=== PATIENT | male | born 1950 | race Caucasian/White ===

== ENCOUNTER 2017-11-25 12:31 | Emergency (ER) | payer OTHER ==
--- NOTE | 2017-11-25 13:45 | XRAY Preliminary Report ---
Exam: XR CHEST 2 VIEW X-RAY IMPRESSION: 1. Nonspecific opacity over the right midlung at the level of the minor fissure. May represent scarri ng/posttreatment change, malignancy given history of small cell lung cancer, or infiltrate. 2. Apparent rounded opacity and prominence of the right hilum may represent a hilar mass or node. Cor relation of these findings with reported scheduled PET scan tomorrow or prior imaging would be very u seful. [facility] SITE ID: [id number]
--- NOTE | 2017-11-25 13:58 | XRAY Report ---
EXAM: CHEST RADIOGRAPHY EXAM DATE: 11/25/2017 01:12 PM. CLINICAL HISTORY: Cough/congestion. Additional history: Treatment for small cell lung cancer. COMPARISON: None. TECHNIQUE: 2 views. FINDINGS: Lungs/Pleura: The lungs are hyperexpanded with flattening of diaphragm and increased retrosternal chandu ar space suggestive of COPD. Infiltrate versus scarring versus tumor present along the course of the right minor fissure extending to the pleural surface. No additional foci of possible consolidation. Mediastinum: Heart size is normal. Patient is mildly rotated toward the right. Atherosclerotic calcif ication present in the thoracic aorta. Rounded density present in the right infrahilar region may rep resent a lymph node or nodule/mass. Other: Accentuated thoracic kyphosis with diffuse osseous demineralization. No acute displaced fractu re demonstrated. IMPRESSION: 1. Nonspecific opacity over the right midlung at the level of the minor fissure may represent scarrin g/posttreatment change, malignancy given history of small cell lung cancer, or infiltrate. 2. Apparent rounded opacity and prominence of the right hilum may represent a hilar mass or node. Cor relation of these findings with reported scheduled PET scan tomorrow or prior imaging would be very u seful. [facility] Referring Provider Line: [phone] SITE ID: [id number]
[2017-11-25] MEDS ORDERED: IPRATROPIUM/ALBUTEROL 3 ML NEB INH STA (14:01)
[2017-11-25] MEDS ORDERED: predniSONE 20 MG TABLET PO STA (14:01)
--- NOTE | 2017-11-25 14:03 | ED Physician Documentation ---
PD HPI DYSPNEA - Stated complaint Stated Complaint: SOA/COUGH - Chief complaint Chief Complaint: Resp - History obtained from History obtained from: Patient - History of Present Illness Timing - onset: Other (He was diagnosed with non-small cell lung cancer of the right upper lobe about 2 months ago with metastases to the neck, duodenum, and hip. He received his second infusion of Opdivo 5 days ago and 2 days ago had 2 units of blood for a hemoglobin of 8.6. He has had 3 days of a cough productive of clear sputum without fever but became short of breath last night. There is no associated chest pain. He is on Eliquis for A. fib but admits to me that he only takes it once a day instead of twice a day because he scared of it. His cancer treatment is at [facility] by Dr. Joe Yin, he is reachable at [phone].) Review of Systems Constitutional: reports: Chills (Since diagnosis, not new), Fatigue. denies: Fever Throat: denies: Dental pain / toothache, Sore throat Cardiac: denies: Chest pain / pressure, Palpitations, Pedal edema, Calf pain Respiratory: reports: Dyspnea, Cough GI: denies: Abdominal Pain PD PAST MEDICAL HISTORY - Past Medical History Cardiovascular: Hypertension, High cholesterol Respiratory: Sleep apnea, CPAP use Endocrine/Autoimmune: None GI: None : None Psych: Claustrophobia Musculoskeletal: Osteoarthritis, Other Derm: None Other Past Medical History: cancer mets - Present Medications Home Medications: Ambulatory Orders Medication Instructions Recorded Confirmed Allopurinol 300 mg PO DAILY 05/04/15 11/25/17 Atorvastatin Calcium [Lipitor] 40 mg PO QPM 05/04/15 11/25/17 amLODIPine [Norvasc] 10 mg PO DAILY 05/04/15 11/25/17 Albuterol Sulfate [Proair Hfa 2 puffs INH Q4H PRN 11/25/17 11/25/17 Inhaler] Apixaban [Eliquis] 2.5 mg PO DAILY 11/25/17 11/25/17 Doxycycline Hyclate 100 mg PO BID #14 tablet 11/25/17 Ferrous Sulfate 325 mg PO DAILY 11/25/17 11/25/17 Hydralazine HCl 100 mg PO BID 11/25/17 11/25/17 Potassium Chloride 10 meq PO DAILY 11/25/17 11/25/17 Torsemide 100 mg PO DAILY 11/25/17 11/25/17 metOLazone [Metolazone] 2.5 mg PO Q3D 11/25/17 11/25/17 predniSONE [Deltasone] 20 mg PO DAILY 5 Days tablet 11/25/17 - Allergies Allergies/Adverse Reactions: Allergies Allergy/AdvReac Type Severity Reaction Status Date / Time MILAGROS Inhibitors AdvReac Intermediate Unknown Verified 11/25/17 14:05 - Social History Does the pt smoke?: No Smoking Status: Never smoker Does the pt drink ETOH?: No Does the pt have substance abuse?: No - Immunizations Immunizations are current?: Yes PD ED PE NORMAL - Vitals Vital signs reviewed: Yes - General General: Alert and oriented X 3, No acute distress - HEENT HEENT: PERRL, EOMI - Neck Neck: Supple, no meningeal sign, No bony TTP - Cardiac Cardiac: RRR, No murmur - Respiratory Respiratory: Other (Tight and wheezy throughout, nonlabored.) - Abdomen Abdomen: Soft, Non tender - Rectal Rectal: Other (Brown guaiac negative stool) - Extremities Extremities: No edema, No calf tenderness / cord - Neuro Neuro: Alert and oriented X 3, Normal speech - Psych Psych: Normal mood, Normal affect Results - Vitals Vitals: Vital Signs - 24 hr 11/25/17 11/25/17 11/25/17 12:43 13:11 13:17 Temperature 37.2 C 36.9 C Heart Rate 88 86 Respiratory 16 16 Rate Blood Pressure 140/69 H 153/93 H O2 Saturation 96 92 11/25/17 11/25/17 11/25/17 14:18 14:45 16:10 Temperature 37.1 C Heart Rate 94 94 101 H Respiratory 20 22 20 Rate Blood Pressure 147/80 H O2 Saturation 94 Oxygen O2 Source Nasal cannula - EKG (time done) 1242 Rate: Rate (enter#) (79) Rhythm: Atrial fibrillation [place]: Normal Ischemia: Non specific changes. No: ST elevation c/w ischemia Computer interpretation: Agree with computer - Labs Labs: Laboratory Tests 11/25/17 11/25/17 11/25/17 13:40 13:40 13:40 WBC 8.1 RBC 2.95 L Hgb 9.2 L Hct 27.6 L MCV 93.8 MCH 31.3 H MCHC 33.4 RDW 20.0 H Plt Count 315 MPV 7.7 Neut # 6.5 Lymph # 0.7 L [place] # 0.8 Eos # 0.0 Baso # 0.1 Absolute Nucleated RBC 0.01 Nucleated RBC % 0.1 D-Dimer Sodium 132 L Potassium 2.9 L Chloride 93 L Carbon Dioxide 27 Anion Gap 12.0 BUN 32 H Creatinine 1.5 H Estimated GFR (MDRD) 47 L Glucose 99 Lactic Acid 1.0 Calcium 8.6 Total Bilirubin 0.9 AST 14 ALT 13 Alkaline Phosphatase 90 Troponin I B-Natriuretic Peptide Total Protein 7.0 Albumin 3.6 Globulin 3.4 Albumin/Globulin Ratio 1.1 Lipase 16 L 11/25/17 11/25/17 11/25/17 13:40 13:40 13:40 WBC RBC Hgb Hct MCV MCH MCHC RDW Plt Count MPV Neut # Lymph # [place] # Eos # Baso # Absolute Nucleated RBC Nucleated RBC % D-Dimer 378.0 H Sodium Potassium Chloride Carbon Dioxide Anion Gap BUN Creatinine Estimated GFR (MDRD) Glucose Lactic Acid Calcium Total Bilirubin AST ALT Alkaline Phosphatase Troponin I 0.04 B-Natriuretic Peptide 669 H Total Protein Albumin Globulin Albumin/Globulin Ratio Lipase - Rads (name of study) 2 view chest x-ray Radiology: EMP read contemporaneously (Right mid lung opacity, right hilar mass could be node or mass.) CTA chest Radiology: EMP read contemporaneously (No PE. Other findings as documented ( right axillary lesion clinically is a sebaceous cyst.)) PD MEDICAL DECISION MAKING - ED course ED course: 67-year-old gentleman with known non-small cell lung cancer, COPD presents with shortness of breath last night the clinically is most consistent with COPD. He is not taking full dose blood thinners, so pulmonary embolism is also on the differential and his d-dimer was positive so this was followed with a CT angiogram of the chest which was negative for same. He was treated with nebulizers and steroids with improvement symptomatically and in his examination pulmonary [place]. I did speak with his oncologist, Dr. Yin at [facility] who did want us to try to decrease the steroids as low as possible because that will interfere with the mechanism of action of his immunotherapy for his lung cancer. Departure - Departure Disposition: 01 Home, Self Care Clinical Impression: COPD exacerbation Dyspnea Qualifiers: Dyspnea type: dyspnea on exertion Qualified Code(s): R06.09 - Other forms of dyspnea Condition: Good Record reviewed to determine appropriate education?: Yes Instructions: COPD Dc Prescriptions: Doxycycline Hyclate 100 mg PO BID #14 tablet predniSONE [Deltasone] 20 mg PO DAILY 5 Days tablet Comments: Call your doctor to arrange a follow-up appointment, make the next available appointment. In the interim, return anytime if worse or if new symptoms develop. Your blood pressure was elevated today on check into the emergency department. This does not mean that you have hypertension, it is a common phenomenon to come to the emergency department and have elevated blood pressure. I recommend that you see your primary care physician within the week to have it rechecked when you are feeling better.
[2017-11-25 14:12] LABS: BASOPHILS # (AUTO) 0.1 10^3/uL (0.0-0.1); BASOPHILS % (AUTO) 0.8 %; EOSINOPHILS % (AUTO) 0.3 %; HGB - HEMOGLOBIN 9.2 g/dL (14.0-18.0); LYMPHOCYTES # (AUTO) 0.7 10^3/uL (1.5-3.5); LYMPHOCYTES % (AUTO) 8.8 %; MEAN CORPUSCULAR HEMOGLOBIN 31.3 pg (27.0-31.0); MEAN CORPUSCULAR HGB CONC 33.4 g/dL (32.0-36.0); MEAN CORPUSCULAR VOLUME 93.8 fL (80.0-94.0); MEAN PLATELET VOLUME 7.7 fL (7.4-11.4); MONOCYTES # (AUTO) 0.8 10^3/uL (0.0-1.0); MONOCYTES % (AUTO) 9.8 %; NEUTROPHILS # (AUTO) 6.5 10^3/uL (1.5-6.6); NEUTROPHILS % (AUTO) 80.3 %; PLT - PLATELET COUNT 315 10^3/uL (130-450); RED BLOOD COUNT 2.95 10^6/uL (4.70-6.10); WHITE BLOOD COUNT 8.1 x10^3/uL (4.8-10.8)
[2017-11-25 14:21] LABS: ALBUMIN 3.6 g/dL (3.2-5.5); ALBUMIN/GLOBULIN RATIO 1.1 (1.0-2.2); BILIRUBIN,TOTAL 0.9 mg/dL (0.2-1.0); CALCIUM 8.6 mg/dL (8.5-10.3); CREATININE 1.5 mg/dL (0.6-1.2)
[2017-11-25] MEDS ORDERED: ALBUTEROL NEB 2.5 MG/3 ML INH STA (14:31)
[2017-11-25] MEDS ORDERED: IOPAMIDOL-300 100 ML VIAL ONE (14:39)
[2017-11-25] MEDS ORDERED: IOPAMIDOL-300 100 ML VIAL IVP ONE (15:26)
--- NOTE | 2017-11-25 15:58 | CT Preliminary Report ---
Exam: CT CHEST ANGIO (PE) IMPRESSION: 1. No evidence of pulmonary emboli through the segmental pulmonary arteries. 2. Right upper lobe spiculated mass in keeping with known non-small cell lung cancer, likely crossing the minor fissure into the right middle lobe as well. Lesion extends from the pleural surface to the hilum with significant attenuation of right upper lobe bronchi and abuts multiple vascular structure s. 2. Probable mediastinal lymph node metastases as described above. No abnormally enlarged left hilar l ymph nodes or left lung lesion to suggest left-sided intrapulmonary metastases or second primary. 3. Nodular thickening of the right adrenal gland suspicious for possible metastasis, incompletely helen racterized on this exam. The left adrenal gland is also thickened, though somewhat hypodense. These f indings will be better characterized on reported planned pet/CT. 4. Incompletely characterized exophytic right renal lesion. This may be better characterized on pendi ng PET/CT. Otherwise consider renal ultrasound for further evaluation to exclude solid mass versus co mplex cystic lesion. 5. Additional findings as above including skin-based lesion partially visualized near the right upper arm/lateral chest wall. [facility] SITE ID: [id number]
--- NOTE | 2017-11-25 16:12 | CT Report ---
EXAM: CT ANGIOGRAM CHEST EXAM DATE: 11/25/2017 03:21 PM. CLINICAL HISTORY: Dyspnea, high D-dimer, known non-small cell lung cancer. COMPARISON: Chest radiograph 11/25/2017. TECHNIQUE: Routine helical imaging was performed through the chest in the pulmonary arterial phase. I V Contrast: 80 mL Isovue 300. Reconstructions: Coronal 3-D MIP reconstructions.Sagittal and coronal. In accordance with CT protocol optimization, one or more of the following dose reduction techniques w ere utilized for this exam: automated exposure control, adjustment of mA and/or KV based on patient s ize, or use of iterative reconstructive technique. FINDINGS: Pulmonary Arteries: Diagnostic quality: Adequate through the segmental arteries. No evidence for acute or chronic pulmona ry emboli. RV/LV is within normal limits. There is no interventricular septal bowing. There is no reflux of cont rast material in the IVC. Lungs/Pleura: -There is a spiculated solid mass predominating in the right upper lobe extending to the jean and ple ural surface, though likely crossing the minor fissure into the right middle lobe as well. This is di fficult to measure accurately without including adjacent possible mediastinal/hilar lymph nodes and a telectatic lung, though approximately 57 x 74 x 29 mm ( and ). -Atelectasis versus a satellite nodule present in the right upper lobe anteriorly measuring 15 x 25 m m (). The mass attenuates and likely partially occludes the right upper lobe bronchi. Right middl e lobe bronchi attenuated centrally at the hilum, possibly due to gladis tissue versus invasive soft t issue from the mass. -Nonspecific solid pulmonary nodule in the right lower lobe associated with the major fissure measure s 5 mm (). Nonspecific right middle lobe nodule peripherally measures 6 mm, solid (). The lef t lung is clear. -No pleural effusion. No pneumothorax. Mediastinum: Borderline cardiomegaly with greatest enlargement of the left atrium. No significant per icardial effusion. Coronary artery calcifications and aortic valve calcifications present. -There are mildly prominent though non-pathologically enlarged left hilar lymph nodes. Right hilar ly mph node measures up to 12 mm in short axis (). There are multiple prominent mediastinal lymph no tiana. For example, right lower paratracheal/precarinal lymph node measures 11 mm (4/70). Lymph node in the superior mediastinum measures 11 mm in short axis (/65). Thoracic Aorta: There is mild fusiform ectasia of the ascending thoracic aorta measuring up to 39 mm. No shayan aneurysm. No dissection. Marked calcific atherosclerosis is present at the arch and origin of the branch vessels. Normal variant bovine arch branch pattern present. Upper Abdomen: Right kidney appears mildly atrophic compared to the left. There is severe calcific at herosclerosis of the visualized upper abdominal aorta with prominent plaque present at the renal miller ry. Both adrenal glands appear thickened, though the left adrenal gland appears mildly hypoattenuatin g, suggestive of possible hyperplasia or adenoma. The right adrenal gland is more hyperattenuating wi th a possible nodule present in the body, measuring 13 x 19 mm versus more severe thickening (4/150). This is incompletely characterized on this exam but there is reportedly a pending PET/CT which will better assess this lesion. There is an exophytic 27 mm lesion from the left interpolar kidney mediall y measuring 39 Hounsfield units, indeterminate for a solid mass versus a complex cyst (4/167). Other: Densely opacified right subclavian vein, this would not warrant imaging follow-up given its sm all size. No abnormally enlarged supraclavicular or axillary lymph nodes. -Partially visualized hypodense ovoid well-circumscribed lesion associated with the skin surface at t he right lateral chest wall/upper arm, likely a benign lesion, though correlation with physical exam recommended (58). Mild gynecomastia, slightly greater on the left than the right. -No acute osseous abnormality or suspicious focal osseous lesion. Chronic-appearing superior endplate compression deformity present at T10 with mild anterior height loss. IMPRESSION: 1. No evidence of pulmonary emboli through the segmental pulmonary arteries. 2. Right upper lobe spiculated mass in keeping with known non-small cell lung cancer, likely crossing the minor fissure into the right middle lobe as well. Lesion extends from the pleural surface to the hilum with significant attenuation of right upper lobe bronchi and abuts multiple vascular structure s. 3. Probable mediastinal lymph node metastases as described above. No abnormally enlarged left hilar l ymph nodes or left lung lesion to suggest left-sided intrapulmonary metastases or second primary. 4. Nodular thickening of the right adrenal gland suspicious for a possible metastasis, incompletely c haracterized on this exam. The left adrenal gland is also thickened, though somewhat hypodense. These findings will be better characterized on reported planned pet/CT. 5 Incompletely characterized exophytic right renal lesion. This may be better characterized on pendin g PET/CT. Otherwise consider renal ultrasound for further evaluation to exclude a solid mass versus a complex cystic lesion. 6. Additional findings as above, including skin-based lesion partially visualized near the right uppe r arm/lateral chest wall. [facility] Referring Provider Line: [phone] SITE ID: [id number]
[2017-11-25] MEDS ORDERED: DOXYCYCLINE 100 MG TABLET PO STA (16:15)
[2017-11-25 16:22] VITALS: BP 147/80
[2017-11-25] MEDS ORDERED: POTASSIUM CHLORIDE 20 MEQ TABLET PO STA (16:27)
== END 2017-11-25 16:31 | disposition home or self-care (01) ==
LOC: ED 12:31
DX: J44.1 Chronic obstructive pulmonary disease with (acute) exacerbation (principal); I10 Essential (primary) hypertension; E78.00 Pure hypercholesterolemia, unspecified; G47.30 Sleep apnea, unspecified; C34.11 Malignant neoplasm of upper lobe, right bronchus or lung; C78.4 Secondary malignant neoplasm of small intestine; C79.89 Secondary malignant neoplasm of other specified sites; I48.91 Unspecified atrial fibrillation; Z79.01 Long term (current) use of anticoagulants
CPT/HCPCS: 36415; 71046; 71275; 80053; 83605; 83690; 83880; 84484; 85025; 85379; 87040; 93005; 94640; 99283; 99284; A9270; J7512; Q9967

== ENCOUNTER 2017-11-27 12:05 | Outpatient (CLI) | payer OTHER, MEDICARE ==
[2017-11-27 12:31] LABS: BASOPHILS % (AUTO) 0.3 %; HGB - HEMOGLOBIN 10.4 g/dL (14.0-18.0); LYMPHOCYTES # (AUTO) 0.3 10^3/uL (1.5-3.5); LYMPHOCYTES % (AUTO) 3.7 %; MEAN CORPUSCULAR HEMOGLOBIN 31.2 pg (27.0-31.0); MEAN CORPUSCULAR VOLUME 94.5 fL (80.0-94.0); MEAN PLATELET VOLUME 7.5 fL (7.4-11.4); MONOCYTES # (AUTO) 0.3 10^3/uL (0.0-1.0); MONOCYTES % (AUTO) 3.8 %; NEUTROPHILS # (AUTO) 8.2 10^3/uL (1.5-6.6); NEUTROPHILS % (AUTO) 92.2 %; PLT - PLATELET COUNT 344 10^3/uL (130-450); RED BLOOD COUNT 3.33 10^6/uL (4.70-6.10); RED CELL DISTRIBUTION WIDTH 19.1 % (12.0-15.0); WHITE BLOOD COUNT 8.9 x10^3/uL (4.8-10.8)
== END 2017-11-27 12:06 | disposition home or self-care (01) ==
LOC: LAB 12:05
PROVIDERS: ATTEND Internal Medicine Hematology & Oncology
DX: C34.91 Malignant neoplasm of unspecified part of right bronchus or lung (principal)
CPT/HCPCS: 36415; 85025

== ENCOUNTER 2017-12-02 21:30 | Outpatient (CLI) | payer OTHER, MEDICARE | END 2017-12-02 21:31 | disposition critical access hospital (66) | LOC: EMS 21:30 | PROVIDERS: ATTEND Surgery | DX: M79.89 Other specified soft tissue disorders (principal); R20.0 Anesthesia of skin | CPT/HCPCS: A0425; A0429 ==

== ENCOUNTER 2017-12-02 21:56 | Emergency (ER) | payer OTHER, MEDICARE ==
[2017-12-02 22:54] LABS: ALBUMIN/GLOBULIN RATIO 1.3 (1.0-2.2); BILIRUBIN,TOTAL 0.3 mg/dL (0.2-1.0); CALCIUM 8.1 mg/dL (8.5-10.3); CREATININE 1.5 mg/dL (0.6-1.2); TOTAL PROTEIN 5.4 g/dL (6.7-8.2)
[2017-12-02] MEDS ORDERED: IOPAMIDOL-300 100 ML VIAL ONE (23:10)
[2017-12-02 23:19] LABS: BASOPHILS # (AUTO) 0.1 10^3/uL (0.0-0.1); BASOPHILS % (AUTO) 0.8 %; LYMPHOCYTES # (AUTO) 0.7 10^3/uL (1.5-3.5); LYMPHOCYTES % (AUTO) 5.6 %; MEAN CORPUSCULAR HEMOGLOBIN 30.8 pg (27.0-31.0); MEAN CORPUSCULAR HGB CONC 31.6 g/dL (32.0-36.0); MEAN CORPUSCULAR VOLUME 97.3 fL (80.0-94.0); MEAN PLATELET VOLUME 7.3 fL (7.4-11.4); MONOCYTES # (AUTO) 0.7 10^3/uL (0.0-1.0); MONOCYTES % (AUTO) 5.5 %; NEUTROPHILS # (AUTO) 11.1 10^3/uL (1.5-6.6); NEUTROPHILS % (AUTO) 88.1 %; PLT - PLATELET COUNT 288 10^3/uL (130-450); RED BLOOD COUNT 1.42 10^6/uL (4.70-6.10); RED CELL DISTRIBUTION WIDTH 20.5 % (12.0-15.0); WHITE BLOOD COUNT 12.6 x10^3/uL (4.8-10.8)
[2017-12-02 23:20] LABS: HGB - HEMOGLOBIN 4.4 g/dL (14.0-18.0)
[2017-12-02 23:23] LABS: INR 1.2 (0.8-1.2); PT - PROTHROMBIN TIME 13.1 secs (9.9-12.6)
[2017-12-02] MEDS ORDERED: IOPAMIDOL-300 100 ML VIAL IVP ONE (23:33)
[2017-12-02 23:56] LABS: PLATELET ESTIMATE, MANUAL NORMAL (130-450,000) (NORMAL)
--- NOTE | 2017-12-03 00:02 | CT Preliminary Report ---
Exam: CT LOWER EXTREMITY ANGIO BI W/ Preliminary vascular radiology report: 1. Severe atherosclerotic disease of the aorta, pelvic vessels, and bilateral leg vessels. 2. Small right kidney which is relatively hypoenhancing, likely due to chronic high-grade renal arter y stenosis. 3. 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 There is reconstitution of the distal superficial femoral artery and popliteal artery which are both severely diseased. The calf arteries are highly diseased with multilevel high-grade stenoses. Difficu lt to assess calf vessel patency due to calcifications. 4. Essentially occluded right common femoral artery with reconstitution of the superficial femoral ar alicja proximally this may be chronic as well.. Superficial femoral artery, popliteal artery, and calf arteries are highly diseased throughout their lengths. Difficult to assess calf vessel patency due to calcifications. Please followup with the final report to be performed by a vascular specialist in the morning. SITE ID: [id number]
--- NOTE | 2017-12-03 02:16 | ED Physician Documentation ---
History of Present Illness - Stated complaint Stated Complaint: FOOT COLD/NUMB - Chief complaint Chief Complaint: Ext Problem - History obtained from History obtained from: Patient, EMS - History of Present Illness Timing: Today - Additonal information Additional information: Patient is a 67 year old male with a history of metastatic CA with mets all over his body who is presenting to the emergency department for dizziness, and foot pain. patient states that he took a long shower and was feeling light headed. Patient also reports that he developed pain in his left foot that he has never had before and it felt cold even though he took a hot shower. Review of Systems Constitutional: denies: Fever, Chills Eyes: reports: Reviewed and negative Ears: reports: Reviewed and negative Nose: reports: Reviewed and negative Throat: denies: Sore throat Cardiac: reports: Pedal edema. denies: Chest pain / pressure, Palpitations GI: reports: Abdominal Pain. denies: Nausea, Vomiting : reports: Reviewed and negative Musculoskeletal: reports: Extremity pain, Joint pain, Extremity swelling Neurologic: reports: Generalized weakness. denies: Focal weakness, Numbness Immunocompromised: reports: Immunocompromised PD PAST MEDICAL HISTORY - Past Medical History Past Medical History: Yes Cardiovascular: Hypertension, High cholesterol Respiratory: Sleep apnea, CPAP use Endocrine/Autoimmune: None GI: None : None Psych: Claustrophobia Musculoskeletal: Osteoarthritis, Other Derm: None Other Past Medical History: stage IV lung CA w/mets - Past Surgical History Past Surgical History: Yes - Present Medications Home Medications: Ambulatory Orders Medication Instructions Recorded Confirmed Allopurinol 300 mg PO DAILY 05/04/15 11/25/17 Atorvastatin Calcium [Lipitor] 40 mg PO QPM 05/04/15 11/25/17 amLODIPine [Norvasc] 10 mg PO DAILY 05/04/15 11/25/17 Albuterol Sulfate [Proair Hfa 2 puffs INH Q4H PRN 11/25/17 11/25/17 Inhaler] Apixaban [Eliquis] 2.5 mg PO DAILY 11/25/17 11/25/17 Doxycycline Hyclate 100 mg PO BID #14 tablet 11/25/17 Ferrous Sulfate 325 mg PO DAILY 11/25/17 11/25/17 Hydralazine HCl 100 mg PO BID 11/25/17 11/25/17 Potassium Chloride 10 meq PO DAILY 11/25/17 11/25/17 Torsemide 100 mg PO DAILY 11/25/17 11/25/17 metOLazone [Metolazone] 2.5 mg PO Q3D 11/25/17 11/25/17 predniSONE [Deltasone] 20 mg PO DAILY 5 Days tablet 11/25/17 - Allergies Allergies/Adverse Reactions: Allergies Allergy/AdvReac Type Severity Reaction Status Date / Time MILAGROS Inhibitors AdvReac Intermediate Unknown Verified 12/02/17 22:11 - Social History Does the pt smoke?: No Smoking Status: Never smoker Does the pt drink ETOH?: No Does the pt have substance abuse?: No - Immunizations Immunizations are current?: Yes - POLST Patient has POLST: No PD ED PE NORMAL - Vitals Vital signs reviewed: Yes - HEENT HEENT: Atraumatic - Neck Neck: Supple, no meningeal sign - Cardiac Cardiac: RRR, No murmur - Respiratory Respiratory: No respiratory distress - Abdomen Abdomen: Soft - Neuro Neuro: Alert and oriented X 3, Normal speech Eye Opening: Spontaneous Motor: Obeys Commands Verbal: Oriented GCS Score: 15 PD ED PE EXPANDED - General General: Alert - Eyes Eyes: Other (pale conjunctiva) - Extremities Extremities: Pedal edema bilateral, Decreased/absent pulse, Motor intact, Sensory intact. No: Pedal Pulses Present Results - Vitals Vitals: Vital Signs - 24 hr 12/02/17 12/02/17 12/03/17 22:00 23:37 00:52 Temperature 36.3 C L 36.7 C Heart Rate 94 93 88 Respiratory 17 20 18 Rate Blood Pressure 126/53 L 158/76 H 145/68 H O2 Saturation 100 100 12/03/17 12/03/17 12/03/17 01:08 01:40 02:20 Temperature 36.6 C 36.8 C 36.8 C Heart Rate 88 85 95 Respiratory 18 17 17 Rate Blood Pressure 146/74 H 167/71 H 157/74 H O2 Saturation 12/03/17 12/03/17 12/03/17 02:46 03:29 04:23 Temperature 36.9 C 36.9 C 36.8 C Heart Rate 96 86 78 Respiratory 17 18 16 Rate Blood Pressure 159/68 H 161/78 H 154/87 H O2 Saturation 98 12/03/17 12/03/17 12/03/17 04:42 05:01 06:05 Temperature 36.7 C 36.7 C Heart Rate 83 78 80 Respiratory 16 17 16 Rate Blood Pressure 158/73 H 161/76 H 167/79 H O2 Saturation 96 Oxygen O2 Source Room air - Labs Labs: Laboratory Tests 12/02/17 12/02/17 12/02/17 22:35 23:09 23:10 WBC 12.6 H RBC 1.42 L Hgb 4.4 L* Hct 13.8 L* MCV 97.3 H MCH 30.8 MCHC 31.6 L RDW 20.5 H Plt Count 288 MPV 7.3 L Neut # 11.1 H Lymph # 0.7 L [place] # 0.7 Eos # 0.0 Baso # 0.1 Absolute Nucleated RBC 0.16 Nucleated RBC % 1.3 Manual Slide Review Indicated Platelet Estimate NORMAL (130-450,000) RBC Morph Micro Appear 1+ OVALOCYTES PT INR APTT Sodium 136 Potassium 3.4 L Chloride 98 L Carbon Dioxide 24 Anion Gap 14.0 H BUN 63 H Creatinine 1.5 H Estimated GFR (MDRD) 47 L Glucose 149 H Calcium 8.1 L Total Bilirubin 0.3 AST 16 ALT 10 Alkaline Phosphatase 58 Total Protein 5.4 L Albumin 3.0 L Globulin 2.4 Albumin/Globulin Ratio 1.3 Lipase 21 L Blood Type O POSITIVE Blood Type Recheck Antibody Screen NEGATIVE Crossmatch IS Only See Detail 12/02/17 12/03/17 23:10 00:17 WBC RBC Hgb Hct MCV MCH MCHC RDW Plt Count MPV Neut # Lymph # [place] # Eos # Baso # Absolute Nucleated RBC Nucleated RBC % Manual Slide Review Platelet Estimate RBC Morph Micro Appear PT 13.1 H INR 1.2 APTT 13.8 L Sodium Potassium Chloride Carbon Dioxide Anion Gap BUN Creatinine Estimated GFR (MDRD) Glucose Calcium Total Bilirubin AST ALT Alkaline Phosphatase Total Protein Albumin Globulin Albumin/Globulin Ratio Lipase Blood Type Blood Type Recheck O POSITIVE Antibody Screen Crossmatch IS Only - Rads (name of study) ct angio bilateral lower extremities Radiology: See rad report (occulsions of bilateral femoral arteries likely chronic. poor vascularity and possibly occuled vessel) PD MEDICAL DECISION MAKING - ED course Complexity details: reviewed old records, reviewed results, re-evaluated patient , considered differential, d/w patient, d/w family, d/w product/industry consultant ED course: Patient was seen and examined at bedside. IV access was gained and labs were drawn. patient's peripheral pulses could not be appreciated even with dopplers or ultrasound. CT angio of bilateral extremities was ordered. Patient did have good cap refill and upon original presentation in the emergency department patient was pain free. When patient's labs came back he was found to be anemic with a hemoglobin of 4. it was repeated and consistent. patient was questioned about previous episodes of anemia and he stated he was recently transfused and they thought it was a bleeding duodenal mass or maybe secondary to his chemotherapy. prbcs were ordered. patient's oncologist, Dr. Garsia was contacted at [facility]. He stated transfuse and your can transfer. Hospitalist was contacted and stated that he would accept the patient but they currently had no beds at the moment. Patient was transfused 4 units in the emergency department. Patient was awaiting bed when I left Departure - Departure Clinical Impression: Symptomatic anemia
[2017-12-03] MEDS ORDERED: oxyCODONE 5 MG TABLET PO STA (03:14)
--- NOTE | 2017-12-03 09:48 | ED Physician Documentation ---
History of Present Illness - Stated complaint Stated Complaint: FOOT COLD/NUMB - Chief complaint Chief Complaint: Ext Problem PD PAST MEDICAL HISTORY - Past Medical History Past Medical History: Yes Cardiovascular: Hypertension, High cholesterol Respiratory: Sleep apnea, CPAP use Endocrine/Autoimmune: None GI: None : None Psych: Claustrophobia Musculoskeletal: Osteoarthritis, Other Derm: None Other Past Medical History: stage IV lung CA w/mets - Past Surgical History Past Surgical History: Yes - Present Medications Home Medications: Ambulatory Orders Medication Instructions Recorded Confirmed Allopurinol 300 mg PO DAILY 05/04/15 11/25/17 Atorvastatin Calcium [Lipitor] 40 mg PO QPM 05/04/15 11/25/17 amLODIPine [Norvasc] 10 mg PO DAILY 05/04/15 11/25/17 Albuterol Sulfate [Proair Hfa 2 puffs INH Q4H PRN 11/25/17 11/25/17 Inhaler] Apixaban [Eliquis] 2.5 mg PO DAILY 11/25/17 11/25/17 Doxycycline Hyclate 100 mg PO BID #14 tablet 11/25/17 Ferrous Sulfate 325 mg PO DAILY 11/25/17 11/25/17 Hydralazine HCl 100 mg PO BID 11/25/17 11/25/17 Potassium Chloride 10 meq PO DAILY 11/25/17 11/25/17 Torsemide 100 mg PO DAILY 11/25/17 11/25/17 metOLazone [Metolazone] 2.5 mg PO Q3D 11/25/17 11/25/17 predniSONE [Deltasone] 20 mg PO DAILY 5 Days tablet 11/25/17 - Allergies Allergies/Adverse Reactions: Allergies Allergy/AdvReac Type Severity Reaction Status Date / Time MILAGROS Inhibitors AdvReac Intermediate Unknown Verified 12/02/17 22:11 - Social History Does the pt smoke?: No Smoking Status: Never smoker Does the pt drink ETOH?: No Does the pt have substance abuse?: No - Immunizations Immunizations are current?: Yes - POLST Patient has POLST: No Results - Vitals Vitals: Oxygen O2 Source Room air - Labs Labs: Laboratory Tests 12/02/17 12/02/17 12/02/17 22:35 23:09 23:10 WBC 12.6 H RBC 1.42 L Hgb 4.4 L* Hct 13.8 L* MCV 97.3 H MCH 30.8 MCHC 31.6 L RDW 20.5 H Plt Count 288 MPV 7.3 L Neut # 11.1 H Lymph # 0.7 L [place] # 0.7 Eos # 0.0 Baso # 0.1 Absolute Nucleated RBC 0.16 Nucleated RBC % 1.3 Manual Slide Review Indicated Platelet Estimate NORMAL (130-450,000) RBC Morph Micro Appear 1+ OVALOCYTES PT INR APTT Sodium 136 Potassium 3.4 L Chloride 98 L Carbon Dioxide 24 Anion Gap 14.0 H BUN 63 H Creatinine 1.5 H Estimated GFR (MDRD) 47 L Glucose 149 H Calcium 8.1 L Total Bilirubin 0.3 AST 16 ALT 10 Alkaline Phosphatase 58 Total Protein 5.4 L Albumin 3.0 L Globulin 2.4 Albumin/Globulin Ratio 1.3 Lipase 21 L Blood Type O POSITIVE Blood Type Recheck Antibody Screen NEGATIVE Crossmatch IS Only See Detail 12/02/17 12/03/17 12/03/17 23:10 00:17 11:10 WBC RBC Hgb 8.0 L Hct 23.8 L MCV MCH MCHC RDW Plt Count MPV Neut # Lymph # [place] # Eos # Baso # Absolute Nucleated RBC Nucleated RBC % Manual Slide Review Platelet Estimate RBC Morph Micro Appear PT 13.1 H INR 1.2 APTT 13.8 L Sodium Potassium Chloride Carbon Dioxide Anion Gap BUN Creatinine Estimated GFR (MDRD) Glucose Calcium Total Bilirubin AST ALT Alkaline Phosphatase Total Protein Albumin Globulin Albumin/Globulin Ratio Lipase Blood Type Blood Type Recheck O POSITIVE Antibody Screen Crossmatch IS Only PD MEDICAL DECISION MAKING - ED course Complexity details: reviewed results, re-evaluated patient, d/w device sales consultant ED course: At change of shift the patient's care was signed out to me, pending transfer to [facility]. The patient is undergoing blood transfusion for profound anemia, with hemoglobin 4.4 and hematocrit 13.8. Please see Dr. Boss's report for the patient's initial presentation. He remained hemodynamically stable while in the emergency department awaiting transfer. Repeat hemoglobin and hematocrit improved to 8.0 and 23.8. After being notified of bed availability at [facility], I discussed his current condition with the hospitalist there, Dr. Houston. The patient was transported via ALS ambulance. Departure - Departure Disposition: 02 Transfer Acute [facility] Clinical Impression: Symptomatic anemia Condition: Fair Discharge Date/Time: 12/03/17 11:26
[2017-12-03 10:59] VITALS: BP 161/83
--- NOTE | 2017-12-03 11:33 | CT Report ---
EXAM: CT ANGIOGRAM BILATERAL LOWER EXTREMITY WITH CONTRAST DATE: 12/02/2017 11:37 PM HISTORY: Bilateral foot pain. No palpable pulses. COMPARISONS: None. TECHNIQUE: Thin-section axial images were acquired of the lower extremity from the dome of the diaphr agm to the feet in arterial phase after administration of intravenous contrast. IV contrast: 75 mL Is ovue-300, no reaction. Post-processing: Multiplanar MPR and 3D MIP reformats. Other: None. In accordance with CT protocol optimization, one or more of the following dose reduction techniques w ere utilized for this exam: automated exposure control, adjustment of mA and/or KV based on patient s ize, or use of iterative reconstructive technique. FINDINGS: Bones and Joints: [place] mixed areas of abnormal increased density seen in distal femur and proxi mal tibia on the left side. Evidence of previous traumatic injury with plates and screws adjacent to the distal left tibia. 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 Some arthritic changes are also seen at the right hip. Musculature: Normal. No fatty atrophy. Vascular Structures: Extensive atherosclerotic changes throughout. The aorta at the diaphragmatic hiatus is 2.8 cm. Aorta is mildly ectatic below the takeoff of the renal arteries, measuring 2.6 cm, with a small amoun t of peripheral luminal thrombus. Right common iliac is 1.1 cm, left common iliac is 1.4 cm. Right external iliac is 1.0 cm, left external iliac is 1.1 cm. On the right side, there is segmental occlusion at the origin of the SFA for a distance of about 5 cm . Deep femoral is intact. Common femoral also is intact,although shows some dense atherosclerotic lizy cification. Muscular collaterals reconstitute the SFA in its midportion. The right popliteal, tibioperoneal trunk and 3 vessels in the calf are noted. There are 3 vessels at the ankle. There is at least 80% stenosis at the origin of the SMA and celiac. 80-90% stenosis at the origins of both left and right single renal arteries. On the left side, there is extensive atherosclerotic disease with abnormal calcification. The entire SFA is occluded and there is reconstitution of the proximal popliteal via numerous muscular collatera ls. Contrast material fills the tibioperoneal trunk, anterior and posterior tibial and peroneal vesse ls in the calf. At the distal calf, however, these vessels are occluded and numerous small unnamed ve ssels are seen in the region of the foot and ankle. Right hip shows moderately advanced osteoarthritic change, hip joint space narrowing and marginal ost eophytosis. Other: The other visualized soft tissues are unremarkable. IMPRESSION: 1. Severe multifocal atherosclerotic calcification throughout. 2. No aneurysm. 3. On the right side there is segmental occlusion in the proximal SFA over a distance of about 5 cm. Multilevel stenosis seen in the common femoral, SFA, popliteal and also the calf vessels. Contrast ma terial is seen at all three calf vessels at the ankle. 4. On the left side, occlusion of the entire SFA, reconstitution of the proximal popliteal via vianey us muscular collaterals. Above the foot and ankle, however, named vessels are no longer present; smal l unnamed structures are seen at the ankle and dorsal midfoot. 5. 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 6. 80-90% stenosis of the origin of both left and right single renal arteries. 7. 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 [facility] Referring Provider Line: [phone] SITE ID: [id number]
== END 2017-12-03 11:26 | disposition short-term general hospital (02) ==
LOC: EDBD → EDUNIT# → ED 21:56
DX: D63.0 Anemia in neoplastic disease (principal); C34.90 Malignant neoplasm of unspecified part of unspecified bronchus or lung; C79.89 Secondary malignant neoplasm of other specified sites; I10 Essential (primary) hypertension; E78.00 Pure hypercholesterolemia, unspecified; G47.30 Sleep apnea, unspecified; M19.90 Unspecified osteoarthritis, unspecified site; Z79.01 Long term (current) use of anticoagulants
CPT/HCPCS: 36415; 36430; 73706; 80053; 83690; 85014; 85018; 85025; 85610; 85730; 86850; 86900; 86901; 86920; 99284; A9270; P9016; Q9967; 99285

== ENCOUNTER 2017-12-09 12:08 | Outpatient (CLI) | payer OTHER ==
[2017-12-09 13:08] LABS: HGB - HEMOGLOBIN 8.3 g/dL (14.0-18.0)
== END 2017-12-09 12:09 | disposition home or self-care (01) ==
LOC: LAB 12:08
PROVIDERS: ATTEND Internal Medicine Hematology & Oncology
DX: D62 Acute posthemorrhagic anemia (principal); C34.91 Malignant neoplasm of unspecified part of right bronchus or lung; K31.89 Other diseases of stomach and duodenum
CPT/HCPCS: 36415; 85014; 85018

== ENCOUNTER 2017-12-11 11:06 | Outpatient (CLI) | payer OTHER ==
[2017-12-11 11:41] LABS: HGB - HEMOGLOBIN 8.6 g/dL (14.0-18.0)
== END 2017-12-11 11:07 | disposition home or self-care (01) ==
LOC: LAB 11:06
PROVIDERS: ATTEND Internal Medicine Hematology & Oncology
DX: D62 Acute posthemorrhagic anemia (principal); C34.91 Malignant neoplasm of unspecified part of right bronchus or lung; K31.89 Other diseases of stomach and duodenum
CPT/HCPCS: 36415; 85014; 85018

== ENCOUNTER 2017-12-14 11:20 | Outpatient (CLI) | payer OTHER ==
[2017-12-14 11:43] LABS: HGB - HEMOGLOBIN 9.9 g/dL (14.0-18.0)
== END 2017-12-14 11:21 | disposition home or self-care (01) ==
LOC: LAB 11:20
PROVIDERS: ATTEND Internal Medicine Hematology & Oncology
DX: D62 Acute posthemorrhagic anemia (principal); C34.91 Malignant neoplasm of unspecified part of right bronchus or lung; K31.89 Other diseases of stomach and duodenum
CPT/HCPCS: 36415; 85014; 85018

== ENCOUNTER 2017-12-16 11:42 | Outpatient (CLI) | payer OTHER ==
[2017-12-16 12:34] LABS: HGB - HEMOGLOBIN 9.5 g/dL (14.0-18.0)
== END 2017-12-16 11:43 | disposition home or self-care (01) ==
LOC: LAB 11:42
PROVIDERS: ATTEND Internal Medicine Hematology & Oncology
DX: D62 Acute posthemorrhagic anemia (principal); C34.91 Malignant neoplasm of unspecified part of right bronchus or lung; K31.89 Other diseases of stomach and duodenum
CPT/HCPCS: 36415; 85014; 85018

== ENCOUNTER 2017-12-18 10:56 | Outpatient (CLI) | payer OTHER ==
[2017-12-18 11:15] LABS: HGB - HEMOGLOBIN 10.5 g/dL (14.0-18.0)
== END 2017-12-18 10:57 | disposition home or self-care (01) ==
LOC: LAB 10:56
PROVIDERS: ATTEND Internal Medicine Hematology & Oncology
DX: D62 Acute posthemorrhagic anemia (principal); C34.91 Malignant neoplasm of unspecified part of right bronchus or lung; K31.89 Other diseases of stomach and duodenum
CPT/HCPCS: 36415; 85014; 85018

== ENCOUNTER 2018-01-01 09:24 | Outpatient (CLI) | payer OTHER ==
[2018-01-01 09:44] LABS: BASOPHILS # (AUTO) 0.2 10^3/uL (0.0-0.1); BASOPHILS % (AUTO) 2.6 %; EOSINOPHILS # (AUTO) 0.1 10^3/uL (0.0-0.7); EOSINOPHILS % (AUTO) 1.8 %; HGB - HEMOGLOBIN 11.3 g/dL (14.0-18.0); LYMPHOCYTES % (AUTO) 14.7 %; MEAN CORPUSCULAR HEMOGLOBIN 30.6 pg (27.0-31.0); MEAN CORPUSCULAR HGB CONC 32.4 g/dL (32.0-36.0); MEAN CORPUSCULAR VOLUME 94.4 fL (80.0-94.0); MEAN PLATELET VOLUME 7.6 fL (7.4-11.4); MONOCYTES # (AUTO) 0.8 10^3/uL (0.0-1.0); MONOCYTES % (AUTO) 12.6 %; NEUTROPHILS # (AUTO) 4.4 10^3/uL (1.5-6.6); NEUTROPHILS % (AUTO) 68.3 %; PLT - PLATELET COUNT 258 10^3/uL (130-450); RED BLOOD COUNT 3.69 10^6/uL (4.70-6.10); RED CELL DISTRIBUTION WIDTH 19.8 % (12.0-15.0); WHITE BLOOD COUNT 6.5 x10^3/uL (4.8-10.8)
== END 2018-01-01 09:25 | disposition home or self-care (01) ==
LOC: LAB 09:24
PROVIDERS: ATTEND Internal Medicine Hematology & Oncology
DX: C34.91 Malignant neoplasm of unspecified part of right bronchus or lung (principal)
CPT/HCPCS: 36415; 85025